=== PATIENT | female | born 1955 | race Caucasian/White ===

== ENCOUNTER 2017-06-15 10:56 | Emergency (ER) | payer OTHER ==
[~2017-06-15] VITALS: Ht 167.6 cm; Wt 60.0 kg
[2017-06-15 11:23] VITALS: BP 194/106; PULSE 130; RESP 18; TEMP 98.2; O2SAT 98
--- NOTE | 2017-06-15 11:44 | PD ---
HPI Chief Complaint: Alcohol/Drug Intoxication Time Seen by Provider: 11:31 Travel History International Travel<30 days: No Contact w/Intl Traveler<30days: No Traveled to known affect area: No History of Present Illness HPI 61-year-old female brought in for acute intoxication of the act. Patient admits to drinking 4 24 ounce beers this morning. She appears obviously intoxicated. She is currently cooperative. She has no medical complaints. She has no known drug allergies. COUNT INCLUDES THE [facility] Past Medical History Medical History: Denies Significant Hx Influenza Vaccination: No ?: Not Past Surgical History Surgical History: No Previous Surgery Social History Alcohol Use: Yes (4 pk 24oz beer daily) Tobacco Use: No Substance Use: No Allergies-Medications (Allergen,Severity, Reaction): Coded Allergies: No Known Allergies (Unverified , 06/15/17) Reported Meds & Prescriptions Reported Meds & Active Scripts Active No Active Prescriptions or Reported Medications Review of Systems ROS Limitations: Intoxication Except as stated in HPI: all other systems reviewed are Neg General / Constitutional: No: Fever Eyes: No: Visual changes HENT: No: Headaches Cardiovascular: No: Chest Pain or Discomfort Respiratory: No: Shortness of Breath Gastrointestinal: No: Abdominal Pain Genitourinary: No: Dysuria Musculoskeletal: No: Pain Skin: No Rash Neurologic: No: Weakness Psychiatric: No: Depression Endocrine: No: Polydipsia Hematologic/Lymphatic: No: Easy Bruising Physical Exam Exam Limitations: Intoxication Narrative GENERAL: Patient appears intoxicated but otherwise in no acute distress per SKIN: Warm and dry. Normal color. Normal turgor. No signs of trauma HEAD: Atraumatic. Normocephalic. EYES: Pupils equal and round. No scleral icterus. No injection or drainage. ENT: No nasal bleeding or discharge. Mucous membranes pink and moist. Pharynx is clear. Airways patent NECK: Trachea midline. Supple and nontender. CARDIOVASCULAR: Regular rate and rhythm. RESPIRATORY: No accessory muscle use. Clear to auscultation. Breath sounds equal bilaterally. GASTROINTESTINAL: Abdomen soft, non-tender, nondistended. Hepatic and splenic margins not palpable. MUSCULOSKELETAL: Extremities without clubbing, cyanosis, or edema. No obvious deformities. NEUROLOGICAL: Awake and alert. No obvious cranial nerve deficits. Motor grossly within normal limits. Five out of 5 muscle strength in the arms and legs. Normal speech. PSYCHIATRIC: Appropriate mood and affect; insight and judgment normal. Data Data Last Documented VS Vital Signs Date Time Temp Pulse Resp B/P (MAP) Pulse Ox O2 Delivery O2 Flow Rate FiO2 06/15/17 11:23 98.2 130 18 194/106 (135) 98 Orders Orders Complete Blood Count With Diff (06/15/17 11:32) Comprehensive Metabolic Panel (06/15/17 11:32) Thyroid Stimulating Hormone (06/15/17 11:32) Drug Screen, Random Urine (06/15/17 11:32) Alcohol (Ethanol) (06/15/17 11:32) Diet Regular Basic (06/15/17 Dinner) Labs Laboratory Tests Test 06/15/17 12:07 06/15/17 12:12 Urine Opiates Screen NEG Urine Barbiturates Screen NEG Urine Amphetamines Screen NEG Urine Benzodiazepines Screen NEG Urine Cocaine Screen NEG Urine Cannabinoids Screen NEG White Blood Count 8.9 TH/MM3 Red Blood Count 5.03 MIL/MM3 Hemoglobin 15.9 GM/DL Hematocrit 47.0 % Mean Corpuscular Volume 93.5 FL Mean Corpuscular Hemoglobin 31.5 PG Mean Corpuscular Hemoglobin Concent 33.7 % Red Cell Distribution Width 13.4 % Platelet Count 275 TH/MM3 Mean Platelet Volume 7.9 FL Neutrophils (%) (Auto) 65.1 % Lymphocytes (%) (Auto) 29.6 % Monocytes (%) (Auto) 3.9 % Eosinophils (%) (Auto) 1.0 % Basophils (%) (Auto) 0.4 % Neutrophils # (Auto) 5.8 TH/MM3 Lymphocytes # (Auto) 2.6 TH/MM3 Monocytes # (Auto) 0.3 TH/MM3 Eosinophils # (Auto) 0.1 TH/MM3 Basophils # (Auto) 0.0 TH/MM3 CBC Comment DIFF FINAL Differential Comment Blood Urea Nitrogen 8 MG/DL Creatinine 0.65 MG/DL Random Glucose 99 MG/DL Total Protein 8.9 GM/DL Albumin 4.3 GM/DL Calcium Level 8.4 MG/DL Alkaline Phosphatase 90 U/L Aspartate Amino Transf (AST/SGOT) 39 U/L Alanine Aminotransferase (ALT/SGPT) 29 U/L Total Bilirubin 0.3 MG/DL Sodium Level 141 MEQ/L Potassium Level 3.5 MEQ/L Chloride Level 107 MEQ/L Carbon Dioxide Level 21.2 MEQ/L Anion Gap 13 MEQ/L Estimat Glomerular Filtration Rate 92 ML/MIN Thyroid Stimulating Hormone 3rd Gen 0.553 uIU/ML Ethyl Alcohol Level 341 MG/DL [facility] Medical Decision Making Medical Screen Exam Complete: Yes Emergency Medical Condition: Yes Differential Diagnosis Mariaelena act. Intoxication. Alcohol abuse. Narrative Course Patient appears medically stable at time of exam. Labs ordered including CBC, CMP, urinalysis, TSH, and EtOH level. Urine tox screen is ordered as well. CBC is unremarkable except for hemoglobin of 15.9, hematocrit 47.0 Chemistries unremarkable except for calcium of 8.4, AST 39, total protein is 8.9. TSH is normal. Urine drug screen is negative. Serum alcohol is 341 Patient is maintained here in the department until she is sober. She is given a meal to eat. Patient is felt stable for discharge. Recommend follow[facility] with [facility]. Diagnosis Primary Impression: Alcohol intoxication Qualified Codes: F10.920 - Alcohol use, unspecified with intoxication, uncomplicated [facility] Instructions: Abuse of Alcohol (ED), General Instructions Med/Other Pt SpecificInfo: Prescription(s) given Scripts No Active Prescriptions or Reported Meds Disposition: DISCHARGE HOME Condition: Stable Panfilo Hernandez Jun 15, 2017 11:44
[2017-06-15 12:52] LABS: AUTOMATED NEUTROPHIL # 5.8 TH/MM3 (1.8-7.7); BASOPHIL % 0.4 % (0.0-2.0); EOSINOPHIL # 0.1 TH/MM3 (0-0.4); HEMOGLOBIN 15.9 GM/DL (11.6-15.3); LYMPH % 29.6 % (9.0-44.0); LYMPHOCYTE # 2.6 TH/MM3 (1.0-4.8); MEAN CELL VOLUME 93.5 FL (80.0-100.0); MEAN CORPUSCULAR HEMOGLOBIN 31.5 PG (27.0-34.0); MEAN CORPUSCULAR HGB CONC 33.7 % (32.0-36.0); MEAN PLATELET VOLUME 7.9 FL (7.0-11.0); MONO % 3.9 % (0.0-8.0); MONOCYTE # 0.3 TH/MM3 (0-0.9); NEUT % 65.1 % (16.0-70.0); PLATELET COUNT 275 TH/MM3 (150-450); RED BLOOD COUNT 5.03 MIL/MM3 (4.00-5.30); RED CELL DISTRIBUTION WIDTH 13.4 % (11.6-17.2); WHITE BLOOD COUNT 8.9 TH/MM3 (4.0-11.0)
[2017-06-15 13:07] LABS: ALBUMIN 4.3 GM/DL (3.4-5.0); AST (GOT) 39 U/L (15-37); BICARBONATE 21.2 MEQ/L (21.0-32.0); BLOOD UREA NITROGEN 8 MG/DL (7-18); CALCIUM 8.4 MG/DL (8.5-10.1); CHLORIDE 107 MEQ/L (98-107); CREATININE 0.65 MG/DL (0.50-1.00); GLOMERULAR FILTRATION RATE 92 ML/MIN (>89); GLUCOSE,RANDOM 99 MG/DL (74-106); SODIUM (NA) 141 MEQ/L (136-145)
[2017-06-15 13:18] LABS: ALKALINE PHOSPHATASE 90 U/L (45-117); ALT (GPT) 29 U/L (10-53); TOTAL BILIRUBIN ADULT 0.3 MG/DL (0.2-1.0); TOTAL PROTEIN 8.9 GM/DL (6.4-8.2)
== END 2017-06-15 17:40 | disposition home or self-care (01) ==
LOC: NEPD 10:56
DX: F10.129 Alcohol abuse with intoxication, unspecified (principal)
CPT/HCPCS: 80053; 80307; 84443; 85025; 99283